=== PATIENT | female | born 1945 | race Caucasian/White ===

== ENCOUNTER → 2017-06-22 | Outpatient (CLI) | payer MEDICARE ==
[~2017-06-22] VITALS: Ht 154.9 cm; Wt 59.3 kg
[~2017-06-22] MED LIST: BIOTCAP PO; CALCTAB33 PO; CHLORHEXIDINE GLUCONATE 2 % 1 PACK (2 CLOTHS) TOPICAL PRN; COLA100C; INSULIN HUMAN REGULAR 1,000 UNITS/10 ML VIAL SQ PRN; LACTATED RINGER'S 1000 ML IV PRN; LOSA50TA PO; METOPROLOL TARTRATE 25 MG TAB PO PRN; POVIDONE IODINE 5% (ANTISEPSIS KIT) 4 APPLICATIONS EACH NARE PRN; PRAV40TA2 PO; PROPOFOL 500 MG/50 ML INJ 50 ML ONE; SACC1CAP3 PO; SODIUM CHLORID 0.9% 500 ML IV PRN; VENL75TA PO; VITACAP7 PO
[2017-06-22 12:18] VITALS: BP 159/90; PULSE 89; RESP 18; TEMP 97.3; O2SAT 97
--- NOTE | 2017-06-22 13:21 | MR ---
cc: SALUD FALCON M.D. DATE 06/22/2017 DATE OF 1945 PROCEDURE EGD, biopsy and dilatation of the esophagus. INDICATION FOR THE PROCEDURE Dysphagia. Photographs were taken. PREMEDICATION Administered by anesthesiology. MONITORING Accomplished with pulse oximeter, EKG, blood pressure monitor. PROCEDURE NOTE After informed consent was obtained and the procedure, risks, and benefits were explained including the risk of bleeding, sepsis, perforation, risks of anesthesia, the patient was placed in the left lateral position and the video scope was inserted in the esophagus under direct visualization. The esophagus itself appeared to be grossly normal except at the EG junction, there was slightly irregular Z-line that was biopsied. There was one or two small patches of Shannon's islets. These were quite small 2 to 3 mm in size. The rest of the esophagus was unremarkable. The stomach was entered. The gastric mucosa appeared to be normal. In the retroflex view, the cardia and fundus were unremarkable. The pylorus was patent. The first, second and third portion of the duodenum were unremarkable. An endoscopic guidewire was placed in the distal antrum and the scope was gradually withdrawn and a López-Magalie dilator 17 mm was successfully passed over the dilator with minimal to no resistance. The patient tolerated this well. No immediate complications were noted. IMPRESSION Status post esophageal dilation x one to 17 mm as above. The EG junction has a slightly irregular Z-line. Biopsies were taken to rule out Shannon's esophagus. Incidentally, we also obtained biopsies in the proximal esophagus to rule out eosinophilic esophagitis as well. Would continue PPI therapy. Advance diet as tolerated. Follow up clinically as an outpatient to see how she responds to dilation. MD MARII Peter/ISAEL /11:48 AM /1:09 PM
--- NOTE | 2017-06-22 13:42 | EKG ---
Date Performed: 06/22/2017 Time Performed: 09:19:04 PTAGE: 72 years EKG: Sinus rhythm NORMAL ECG NO PREVIOUS TRACING DOCTOR: Norman Maldonado Interpretating Date/Time 06/22/2017 13:39:56
== END ==
LOC: HSDC 08:51
PROVIDERS: ATTEND Internal Medicine Gastroenterology
DX: K22.2 Esophageal obstruction (principal); R13.10 Dysphagia, unspecified; K21.9 Gastro-esophageal reflux disease without esophagitis; I10 Essential (primary) hypertension
CPT/HCPCS: 00740; 43239; 43248; 88305; 93005; C1769